=== PATIENT | male | born 1960 | race Caucasian/White ===

== ENCOUNTER → 2017-10-14 | Outpatient (CLI) | payer MEDICARE ==
[2017-10-14 09:17] LABS: BLOOD UREA NITROGEN 19 MG/DL (7-18)
[2017-10-14 09:17] LABS: CREATININE FOR GFR 1.34 MG/DL (0.70-1.30); GLOMERULAR FILTRATION RATE 58.3 (>56)
== END ==
LOC: M LAB 08:29
DX: E11.21 Type 2 diabetes mellitus with diabetic nephropathy (principal); E78.5 Hyperlipidemia, unspecified
CPT/HCPCS: 82565

== ENCOUNTER → 2018-05-12 | Outpatient (REF) | payer MEDICARE ==
[2018-05-12 14:51] LABS: ANION GAP 9 MEQ/L (8-16); BLOOD UREA NITROGEN 20 MG/DL (7-18); CALCIUM LEVEL 9.2 MG/DL (8.5-10.1); CARBON DIOXIDE LEVEL 29 MEQ/L (21-32); CHLORIDE LEVEL 100 MEQ/L (98-107); CHOLESTEROL LEVEL 145 MG/DL (<200); CREATININE FOR GFR 1.29 MG/DL (0.70-1.30); GLOMERULAR FILTRATION RATE > 60.0 (>56); GLUCOSE, FASTING 210 MG/DL (70-100); HDL CHOLESTEROL 48 MG/DL (>40); LDL CHOLESTEROL 29 MG/DL (<100); NON-HDL-C 97 MG/DL; POTASSIUM SERUM 4.4 MEQ/L (3.5-5.1); SODIUM LEVEL 138 MEQ/L (136-145); TRIGLYCERIDES LEVEL 341 MG/DL (<150)
[2018-05-12 14:57] LABS: ESTIMATED AVERAGE GLUCOSE 174 MG/DL (60-110); HEMOGLOBIN A1c 7.7 %
[2018-05-12 16:54] LABS: MAU/CREAT RATIO 104.9 MCG/MG (0.0-30.0)
== END ==
LOC: M LABDRAW1 12:11
DX: E11.21 Type 2 diabetes mellitus with diabetic nephropathy (principal); E78.5 Hyperlipidemia, unspecified
CPT/HCPCS: 83036

== ENCOUNTER → 2018-09-15 | Outpatient (REF) | payer MEDICARE ==
[~2018-09-15] MED LIST: ATEN25TA; ATEN25TA OR; LISI10TA4; NEUR100C OR; NORV5TAB OR; OXYC10TA97 OR; PERC5TAB8 OR; PLAV75TA2 OR; PRAV40TA OR; PRIL20CA; SIMV40TA2; TUMS500C
[2018-09-15 12:46] LABS: BLOOD UREA NITROGEN 19 MG/DL (7-18); CALCIUM LEVEL 8.8 MG/DL (8.5-10.1); CARBON DIOXIDE LEVEL 27 MEQ/L (21-32); CHLORIDE LEVEL 102 MEQ/L (98-107); GLOMERULAR FILTRATION RATE > 60.0 (>56); GLUCOSE, FASTING 96 MG/DL (70-100); POTASSIUM SERUM 4.1 MEQ/L (3.5-5.1); SODIUM LEVEL 138 MEQ/L (136-145)
[2018-09-15 13:40] LABS: MAU/CREAT RATIO 121.9 MCG/MG (0.0-30.0)
[2018-09-15 14:22] LABS: HEMOGLOBIN A1c 9.6 %
== END ==
LOC: M LABDRAW1 11:30
PROVIDERS: ATTEND Physician Assistant Medical
DX: E11.21 Type 2 diabetes mellitus with diabetic nephropathy (principal)

== ENCOUNTER → 2019-08-17 | Outpatient (REF) | payer MEDICARE ==
[2019-08-17 12:11] LABS: BILIRUBIN,TOTAL 0.7 MG/DL (0.2-1.0); CALCIUM LEVEL 9.2 MG/DL (8.8-10.2); CHOLESTEROL RISK RATIO 4.204 (<5); CREATININE FOR GFR 1.36 MG/DL (0.70-1.30); GLOMERULAR FILTRATION RATE 56.9 (>49); POTASSIUM SERUM 4.1 MEQ/L (3.5-5.1); TOTAL PROTEIN 7.8 GM/DL (6.4-8.2)
[2019-08-17 12:41] LABS: HEMOGLOBIN A1c 7.2 %
== END ==
LOC: M LABDRAW1 09:03
PROVIDERS: ATTEND Physician Assistant
DX: Z00.00 Encounter for general adult medical examination without abnormal findings (principal); E78.5 Hyperlipidemia, unspecified; E11.21 Type 2 diabetes mellitus with diabetic nephropathy

== ENCOUNTER → 2020-02-25 | Outpatient (CLI) | payer MEDICARE ==
[2020-02-25 12:56] LABS: ALBUMIN 3.9 GM/DL (3.2-5.2); BILIRUBIN,TOTAL 0.8 MG/DL (0.2-1.0); CALCIUM LEVEL 9.3 MG/DL (8.8-10.2); CHOLESTEROL RISK RATIO 3.804 (<5); CREATININE FOR GFR 1.36 MG/DL (0.70-1.30); GLOMERULAR FILTRATION RATE 56.9 (>49); POTASSIUM SERUM 4.7 MEQ/L (3.5-5.1); TOTAL PROTEIN 7.4 GM/DL (6.4-8.2)
== END ==
LOC: M WUC 09:10
PROVIDERS: ATTEND Physician Assistant Medical
DX: E11.21 Type 2 diabetes mellitus with diabetic nephropathy (principal)

== ENCOUNTER → 2020-08-29 | Outpatient (CLI) | payer MEDICARE ==
--- NOTE | 2020-08-29 08:07 | REP ---
INDICATION: R/O DVT US 1ST LABS 2ND COMPARISON: None. TECHNIQUE: Chisholm scale and color Doppler evaluation left lower extremity using linear high frequency transducer. FINDINGS: Ultrasound examination of the left lower extremity deep venous structures from the common femoral vein to the popliteal vein demonstrates normal compressibility flow and wave patterns in response to respiration and augmentation. There is no evidence for deep venous thrombosis. IMPRESSION: No evidence for deep venous thrombosis. <Electronically signed by Pascual Sultana > 08/29/20 [id number]
[2020-08-29 08:21] LABS: BASO % 0.5 % (0.0-1.0); EOS # 0.2 10^3/uL (0.0-0.5); EOS % 3.7 % (0.0-3.0); LYMPH # 1.3 10^3/uL (1.5-5.0); LYMPH % 21.7 % (24.0-44.0); MEAN CORPUSCULAR HEMOGLOBIN 28.3 pg (27.0-33.0); MEAN CORPUSCULAR HGB CONC 31.7 g/dl (32.0-36.5); MEAN CORPUSCULAR VOLUME 89.3 fl (80.0-96.0); MONO # 0.4 10^3/uL (0.0-0.8); MONO % 6.5 % (0.0-5.0); NEUTROPHILS % 67.3 % (36.0-66.0); PLATELET COUNT, AUTOMATED 197 10^3/uL (150-450); RED BLOOD COUNT 4.59 10^6/uL (4.30-6.10)
[2020-08-29 08:54] LABS: ALBUMIN 3.6 GM/DL (3.2-5.2); ALT/SGPT 22 U/L (12-78); BILIRUBIN,TOTAL 0.5 MG/DL (0.2-1.0); BLOOD UREA NITROGEN 19 MG/DL (7-18); CALCIUM LEVEL 8.9 MG/DL (8.8-10.2); CARBON DIOXIDE LEVEL 26 MEQ/L (21-32); CHLORIDE LEVEL 103 MEQ/L (98-107); CREATININE FOR GFR 1.28 MG/DL (0.70-1.30); GLOMERULAR FILTRATION RATE > 60.0 (>49); GLUCOSE, FASTING 154 MG/DL (70-100); POTASSIUM SERUM 4.5 MEQ/L (3.5-5.1); SODIUM LEVEL 138 MEQ/L (136-145); TOTAL PROTEIN 7.3 GM/DL (6.4-8.2)
== END ==
LOC: M RAD 07:18 → M LAB 07:18
PROVIDERS: ATTEND Nurse Practitioner Family
DX: M79.605 Pain in left leg (principal)

== ENCOUNTER → 2021-06-20 | Outpatient (CLI) | payer MEDICARE ==
[2021-06-20 11:16] LABS: MAU/CREAT RATIO 71.5 MCG/MG (0.0-30.0)
[2021-06-20 12:11] LABS: ALBUMIN 3.9 GM/DL (3.2-5.2); BILIRUBIN,TOTAL 0.6 MG/DL (0.2-1.0); CALCIUM LEVEL 9.4 MG/DL (8.8-10.2); CHOLESTEROL RISK RATIO 2.767 (<5); CREATININE FOR GFR 1.45 MG/DL (0.70-1.30); GLOMERULAR FILTRATION RATE 52.5 (>49); POTASSIUM SERUM 4.4 MEQ/L (3.5-5.1); TOTAL PROTEIN 7.7 GM/DL (6.4-8.2)
== END ==
LOC: M LAB 09:44
PROVIDERS: ATTEND Nurse Practitioner Family
DX: E11.21 Type 2 diabetes mellitus with diabetic nephropathy (principal); E78.5 Hyperlipidemia, unspecified; I10 Essential (primary) hypertension

== ENCOUNTER → 2021-12-24 | Outpatient (CLI) | payer MEDICARE, SELFPAY ==
[2021-12-24 10:23] LABS: HEMOGLOBIN A1c 8.4 %
[2021-12-24 10:25] LABS: BILIRUBIN,TOTAL 0.7 MG/DL (0.2-1.0); CALCIUM LEVEL 9.8 MG/DL (8.8-10.2); CREATININE FOR GFR 1.48 MG/DL (0.70-1.30); GLOMERULAR FILTRATION RATE 51.3 (>49); POTASSIUM SERUM 5.1 MEQ/L (3.5-5.1); TOTAL PROTEIN 7.5 GM/DL (6.4-8.2)
== END ==
LOC: M LAB 09:05
PROVIDERS: ATTEND Nurse Practitioner Family
DX: E11.40 Type 2 diabetes mellitus with diabetic neuropathy, unspecified (principal)

== ENCOUNTER → 2022-04-24 | Outpatient (CLI) | payer MEDICARE ==
[2022-04-24 13:26] LABS: BLOOD UREA NITROGEN 17 MG/DL (7-18); CALCIUM LEVEL 9.4 MG/DL (8.8-10.2); CARBON DIOXIDE LEVEL 28 MEQ/L (21-32); CHLORIDE LEVEL 106 MEQ/L (98-107); CREATININE FOR GFR 1.29 MG/DL (0.70-1.30); GLOMERULAR FILTRATION RATE > 60.0 (>49); GLUCOSE, FASTING 109 MG/DL (70-100); POTASSIUM SERUM 5.1 MEQ/L (3.5-5.1); SODIUM LEVEL 138 MEQ/L (136-145)
[2022-04-24 15:35] LABS: HEMOGLOBIN A1c 6.5 %
== END ==
LOC: M LAB 10:14
PROVIDERS: ATTEND Nurse Practitioner Family
DX: E11.21 Type 2 diabetes mellitus with diabetic nephropathy (principal)

== ENCOUNTER → 2023-03-10 | Outpatient (CLI) | payer MEDICARE ==
[2023-03-10 11:58] LABS: HEMOGLOBIN A1c 7.2 % (4.0-6.0)
[2023-03-10 12:08] LABS: CREATININE, URINE 98.6 MG/DL
[2023-03-10 12:09] LABS: MAU/CREAT RATIO 60.8 MCG/MG (0.0-30.0)
[2023-03-10 12:10] LABS: CHOLESTEROL RISK RATIO 4.13 (<5); HDL CHOLESTEROL 36.3 MG/DL (>40); LDL CHOLESTEROL 36.7 MG/DL (<100); NON-HDL-C 113.7 MG/DL
== END ==
LOC: M LAB 09:32
PROVIDERS: ATTEND Nurse Practitioner Family
DX: E11.21 Type 2 diabetes mellitus with diabetic nephropathy (principal); E78.5 Hyperlipidemia, unspecified

== ENCOUNTER → 2023-10-20 | Outpatient (CLI) | payer MEDICARE ==
[2023-10-20 09:59] LABS: HEMOGLOBIN A1c 7.9 % (4.0-6.0)
[2023-10-20 10:14] LABS: ALBUMIN 3.9 G/DL (3.2-5.2); ALKALINE PHOSPHATASE 66 U/L (46-116); ALT/SGPT 35 U/L (7.0-40); AST/SGOT 18 U/L (<34); BILIRUBIN,TOTAL 0.8 MG/DL (0.3-1.2); BLOOD UREA NITROGEN 20 MG/DL (9-23); CALCIUM LEVEL 9.5 MG/DL (8.3-10.6); CARBON DIOXIDE LEVEL 30 MMOL/L (20-31); CHLORIDE LEVEL 104 MMOL/L (98-107); CREATININE FOR GFR 1.28 MG/DL (0.70-1.30); GLOMERULAR FILTRATION RATE > 60.0 (>49); GLUCOSE, FASTING 145 MG/DL (74-106); POTASSIUM SERUM 5.1 MMOL/L (3.5-5.1); SODIUM LEVEL 139 MMOL/L (136-145); TOTAL PROTEIN 7.2 G/DL (5.7-8.2)
== END ==
LOC: M LAB 09:15
PROVIDERS: ATTEND Nurse Practitioner Family
DX: E11.21 Type 2 diabetes mellitus with diabetic nephropathy (principal)

== ENCOUNTER → 2024-10-04 | Outpatient (CLI) | payer MEDICARE ==
[2024-10-04 12:06] LABS: CREATININE FOR GFR 1.39 MG/DL (0.70-1.30); GLOMERULAR FILTRATION RATE 54.6 (>49)
== END ==
LOC: M LAB 09:04
PROVIDERS: ATTEND Nurse Practitioner Adult Health
DX: M54.6 Pain in thoracic spine (principal); M54.50 Low back pain, unspecified; M54.2 Cervicalgia

== ENCOUNTER → 2025-01-18 | Outpatient (CLI) | payer MEDICARE ==
[2025-01-18 11:39] LABS: CREATININE, URINE 134.4 MG/DL; MAU/CREAT RATIO 69.9 MCG/MG (0.0-30.0)
[2025-01-18 11:41] LABS: ALBUMIN 4.2 G/DL (3.2-5.2); BILIRUBIN,TOTAL 0.9 MG/DL (0.3-1.2); CALCIUM LEVEL 9.7 MG/DL (8.3-10.6); CHOLESTEROL RISK RATIO 3.83 (<5); CREATININE FOR GFR 1.26 MG/DL (0.70-1.30); GLOMERULAR FILTRATION RATE 63.3 (>49); HDL CHOLESTEROL 39.1 MG/DL (>40); LDL CHOLESTEROL 37.7 MG/DL (<100); NON-HDL-C 110.9 MG/DL; POTASSIUM SERUM 4.6 MMOL/L (3.5-5.1); TOTAL PROTEIN 7.5 G/DL (5.7-8.2)
[2025-01-18 11:52] LABS: HEMOGLOBIN A1c 7.3 % (4.0-6.0)
== END ==
LOC: M LAB 10:44
PROVIDERS: ATTEND Nurse Practitioner Family
DX: I10 Essential (primary) hypertension (principal); E11.51 Type 2 diabetes mellitus with diabetic peripheral angiopathy without gangrene; E78.5 Hyperlipidemia, unspecified

== ENCOUNTER → 2025-08-04 | Outpatient (CLI) | payer MEDICARE ==
[2025-08-04 13:58] LABS: ESTIMATED AVERAGE GLUCOSE 226.0 MG/DL (60-110)
== END ==
LOC: M LAB 12:21
PROVIDERS: ATTEND Nurse Practitioner Family
DX: E11.21 Type 2 diabetes mellitus with diabetic nephropathy (principal)